=== PATIENT | male | born 1940 | race Caucasian/White ===

== ENCOUNTER 2016-07-07 12:16 | Emergency (ER) | payer MEDICARE, OTHER ==
[2016-07-07 12:41] VITALS: BP 139/71
--- NOTE | 2016-07-07 12:49 | ED ---
Respiratory - HPI Summary HPI Summary: he has had a cough for three weeks. it is mainly dry. no fever or pain. he has tried z pack three weeks ago. no hemoptysis. no known lung disease. no significant sob at rest. - History of Current Complaint Chief Complaint: UCGeneralIllness Stated Complaint: COUGH CONGESTION Time Seen by Provider: 07/07/16 12:35 Hx Obtained From: Patient, Family/Corn Detasseler Onset/Duration: Gradual Onset Timing: Constant Initial Severity: Mild Current Severity: Moderate Character: Cough (Productive), Cough (Nonproductive) Sputum Amount: Scant Sputum Color: White Aggravating Factor(s): Deep Breaths Alleviating Factor(s): Nothing Associated Signs and Symptoms: Negative - Risk Factors Status Asthmaticus Risk Factors: Negative - Allergy/Home Medications Allergies/Adverse Reactions: Allergies Allergy/AdvReac Type Severity Reaction Status Date / Time No Known Allergies Allergy Verified 10/28/15 18:00 PMH/Surg Hx/FS Hx/Imm Hx Endocrine/Hematology History: Reports: Hx Diabetes Denies: Hx Thyroid Disease Cardiovascular History: Denies: Hx Congestive Heart Failure, Hx Deep Vein Thrombosis, Hx Hypertension , Hx Myocardial Infarction, Hx Pacemaker/ICD Respiratory History: Reports: Hx Asthma Denies: Hx Chronic Obstructive Pulmonary Disease (COPD), Hx Lung Cancer GI History: Denies: Hx Gall Bladder Disease, Hx Gastrointestinal Bleed, Hx Ulcer, Hx Urosepsis History: Denies: Hx Kidney Stones, Hx Renal Disease Neurological History: Denies: Hx Dementia, Hx Migraine, Hx Seizures, Hx Transient Ischemic Attacks (TIA) Psychiatric History: Denies: Hx Anxiety, Hx Depression, Hx Schizophrenia, Hx Bipolar Disorder - Surgical History Surgery Procedure, Year, and Place: R knee x 2, cholecystectomy, hernia- right groin Infectious Disease History: Yes Infectious Disease History: Reports: Hx Hepatitis - Hepatitis B Denies: Traveled Outside the [place] in Last 30 Days - Family History Known Family History: Positive: None, Cardiac Disease - Social History Alcohol Use: None Substance Use Type: Reports: None Smoking Status (MU): Former Smoker Have You Smoked in the Last Year: No Review of Systems Negative: Fever, Chills, Fatigue Eyes: Negative Negative: Photophobia ENT: Negative Negative: Epistaxis Cardiovascular: Negative Positive: Cough Gastrointestinal: Negative All Other Systems Reviewed And Are Negative: Yes Physical Exam Triage Information Reviewed: Yes Vital Signs On Initial Exam: Initial Vitals Temp Pulse Resp BP Pulse Ox 97.5 F 75 16 139/71 97 07/07/16 12:31 07/07/16 12:31 07/07/16 12:31 07/07/16 12:31 07/07/16 12:31 Vital Signs Reviewed: Yes Appearance: Positive: Well-Appearing, No Pain Distress, Well-Nourished. Negative: Ill-Appearing, Pain Distress, Obese Skin: Positive: Warm, Skin Color Reflects Adequate Perfusion Head/Face: Positive: Normal Head/Face Inspection Eyes: Positive: Normal ENT: Positive: Normal ENT inspection, Hearing grossly normal, Pharynx normal, Nasal congestion, Nasal drainage. Negative: Pharyngeal erythema, TMs normal, TM bulging, TM dull, TM red, Tonsillar swelling, Tonsillar exudate, Trismus, Muffled/hoarse voice, Dental tenderness Neck: Positive: Supple, Nontender, No Lymphadenopathy. Negative: Nuchal Rigidity, Tenderness @, Enlarged Nodes @ Respiratory/Lung Sounds: Positive: Clear to Auscultation, Breath Sounds Present , Decreased Breath Sounds. Negative: Rales, Rhonchi, Subcutaneous Emphysema, Stridor, Tracheal Deviation, Wheezes, Unable to speak in full sentences Cardiovascular: Positive: Normal, RRR, Pulses are Symmetrical in both Upper and Lower Extremities Abdomen Description: Positive: Nontender, No Organomegaly Musculoskeletal: Positive: Normal. Negative: Edema Left, Edema Right Neurological: Positive: Normal, Sensory/Motor Intact, Alert, Oriented to Person Place, Time, CN Intact II-III Psychiatric: Positive: Normal Diagnostics - Vital Signs Vital Signs Temp Pulse Resp BP Pulse Ox 07/07/16 12:31 97.5 F 75 16 139/71 97 - Laboratory Lab Statement: Any lab studies that have been ordered have been reviewed, and results considered in the medical decision making process. Disposition - Course Course Of Treatment: Pt appears well. no fever or abnormal vitals. he is breathing and talking comfortably. x ray to be reviewed. He will return to ed for any worsening. we will try prednisone and antiobiotics. He and agree to f/u on Sunday with pcp. PE is less likely due to no sob and no calf swelling or tachycardia. - Differential Dx - Cardiopulmonary Differential Diagnoses - Cardiopulmonary: Acute Coronary, Acute Dyspnea, Airway Obstruction, Cardiomyopathy, Chest Wall Pain, Hyperkalemia, Hyperventilation, Hypokalemia, Influenza, Laryngitis, Lower Resp Infection, Myocarditis, Paroxysmal SVT, Paroxysmal VT, Pericarditis, Pleurisy, Pneumothorax, Pulmonary Edema, Pulmonary Embolism - Diagnoses Provider Diagnoses: Acute bronchitis Discharge - Discharge Plan Condition: Good Disposition: HOME Prescriptions: DOXYcycline CAP(*) [DOXYcycline 100MG CAP(*)] 100 mg PO BID #20 cap predniSONE TAB* [Deltasone TAB*] 40 mg PO DAILY #5 tab Patient Education Materials: Acute Bronchitis (ED) Referrals: Isabella Wagner MD [Primary Care Provider] - 3 Days
--- NOTE | 2016-07-07 13:00 | RAD ---
Indication: Cough. 2 views of the chest including dual energy PA views demonstrates no mediastinal shift. Heart is of normal size and configuration. Lung fernandes demonstrate no pleural fluid, pneumonia or pneumothorax. Comparison is made with previous exam dated September 19, 2014. IMPRESSION: No active cardiopulmonary disease is noted.
== END 2016-07-07 13:43 | disposition home or self-care (01) ==
LOC: UCCORT 12:16
DX: J20.9 Acute bronchitis, unspecified (principal); Z87.891 Personal history of nicotine dependence
CPT/HCPCS: 71020; 99212; G0463

== ENCOUNTER 2017-10-12 09:59 | Emergency (ER) | payer OTHER ==
[2017-10-12 10:42] VITALS: BP 132/67
--- NOTE | 2017-10-12 12:08 | UC ---
Respiratory Complaint HPI - HPI Summary HPI Summary: several days of worsening sinus and chest congestion---patient states this is his usual yearly bronchitis pattern---he has not started using his inhalers yet- - History of Current Complaint Chief Complaint: UCRespiratory Stated Complaint: COUGH/SNEEZING Time Seen by Provider: 10/12/17 12:01 Hx Obtained From: Patient Onset/Duration: Gradual Onset, Lasting Days, Still Present Timing: Constant Pain Intensity: 0 Character: Cough: Productive Aggravating Factors: Deep Breaths, Recumbent Position Alleviating Factors: Nothing Associated Signs And Symptoms: Positive: URI, Nasal Congestion, Sinus Discomfort - Allergies/Home Medications Allergies/Adverse Reactions: Allergies Allergy/AdvReac Type Severity Reaction Status Date / Time No Known Allergies Allergy Verified 10/12/17 10:32 Home Medications: Home Medications Acetaminophen [Acetaminophen Extra Strength] 1,000 mg PO Q12H PRN 10/12/17 [ History Confirmed 10/12/17] Albuterol HFA INHALER* [Ventolin HFA Inhaler*] 1 - 2 puff INH Q4H PRN 10/12/17 [ History Confirmed 10/12/17] Finasteride [Proscar] 5 mg PO DAILY 10/12/17 [History Confirmed 10/12/17] Fluticasone DISKUS 100 MCG(NF) [Flovent Diskus 100 MCG(NF)] 1 puff INH BID PRN 10/12/17 [History Confirmed 10/12/17] Insulin ASPART (NF) [Novolog (NF)] 14 unit SUBCUT AC 10/12/17 [History Confirmed 10/12/17] Insulin Detemir (NF) [Levemir (NF)] 24 unit SUBCUT BEDTIME 10/12/17 [History Confirmed 10/12/17] Losartan TAB* [Cozaar TAB*] 10 mg PO DAILY 10/12/17 [History Confirmed 10/12/17] Omeprazole CAP* [Prilosec CAP* 20 MG] 20 mg PO DAILY 10/12/17 [History Confirmed 10/12/17] Pravastatin (NF) [Pravachol (NF)] 40 mg PO DAILY 10/12/17 [History Confirmed 12/22] Prescribed Allergy Medication 1 tab PO DAILY 10/12/17 [History] Tamsulosin CAP* [Flomax CAP*] 0.4 mg PO DAILY 10/12/17 [History Confirmed ] PMH/Surg Hx/FS Hx/Imm Hx Previously Healthy: No Endocrine History: Diabetes, Dyslipidemia GI/ History: Gastroesophageal Reflux Other History Of: Negative For: HIV, Hepatitis B, Hepatitis C - Surgical History Surgical History: Yes Surgery Procedure, Year, and Place: R knee x 2, cholecystectomy, hernia- right groin - Family History Known Family History: Positive: None, Cardiac Disease - Social History Occupation: Retired Lives: With Family Alcohol Use: None Substance Use Type: None Smoking Status (MU): Former Smoker Length of Time of Smoking/Using Tobacco: 1 PPD and then a pipe 4-5 daily x 19 Years Have You Smoked in the Last Year: No When Did the Patient Quit Smoking/Using Tobacco: ~1972 Review of Systems Constitutional: Negative Skin: Negative Eyes: Negative ENT: Ear Ache, Nasal Discharge, Sinus Congestion, Sinus Pain/Tenderness Respiratory: Cough Cardiovascular: Negative Gastrointestinal: Negative Genitourinary: Negative Motor: Negative Neurovascular: Negative Musculoskeletal: Negative Neurological: Negative Psychological: Negative Is Patient Immunocompromised?: No All Other Systems Reviewed And Are Negative: Yes Physical Exam Triage Information Reviewed: Yes Appearance: Well-Appearing, No Pain Distress, Well-Nourished Vital Signs: Initial Vital Signs Temp 98.2 F 10/12/17 10:30 Pulse 60 10/12/17 10:30 Resp 18 10/12/17 10:30 BP 132/67 10/12/17 10:30 Pulse Ox 98 10/12/17 10:30 Vital Signs Reviewed: Yes Eye Exam: Normal Eyes: Positive: Conjunctiva Clear ENT Exam: Normal ENT: Positive: Normal ENT inspection, Hearing grossly normal, Pharynx normal, Nasal congestion, TMs normal, Sinus tenderness, Uvula midline. Negative: Nasal drainage, Trismus, Muffled voice, Hoarse voice, Dental tenderness Dental Exam: Normal Neck exam: Normal Neck: Positive: Supple, Nontender Respiratory Exam: Normal Respiratory: Positive: Chest non-tender, Lungs clear, Normal breath sounds, No respiratory distress, No accessory muscle use Cardiovascular Exam: Normal Cardiovascular: Positive: RRR, No Murmur, Pulses Normal, Brisk Capillary Refill Musculoskeletal Exam: Normal Musculoskeletal: Positive: Strength Intact, ROM Intact, No Edema Neurological Exam: Normal Neurological: Positive: Alert, Muscle Tone Normal Psychological Exam: Normal Skin Exam: Normal UC Diagnostic Evaluation - Laboratory O2 Sat by Pulse Oximetry: 98 Respiratory Course/Dx - Course Course Of Treatment: begin inhalers, flonase nasal spray, zithromax, follow with pcp prn - Differential Dx/Diagnosis Provider Diagnoses: Bronchitis Discharge - Sign-Out/Discharge Documenting (check all that apply): Discharge/Admit/Transfer - Discharge Plan Condition: Stable Disposition: HOME Prescriptions: Azithromycin TAB* [Zithromax TAB (Z-JEANA) 250 mg #6 tabs] 2 tab PO .TODAY, THEN 1 DAILY #1 jeana Fluticasone NASAL SPRAY 50MCG* [Flonase NASAL SPRAY 50MCG*] 2 spray BOTH NARES DAILY #1 btl Patient Education Materials: How to Use a Metered-Dose Inhaler (ED), Acute Bronchitis (ED), How to Use Nasal Pansey (ED) Referrals: Isabella Wagner MD [Primary Care Provider] - If Needed - Billing Disposition and Condition Condition: STABLE Disposition: Home
== END 2017-10-12 12:15 | disposition home or self-care (01) ==
LOC: UCCORT 09:59
DX: J40 Bronchitis, not specified as acute or chronic (principal); E11.9 Type 2 diabetes mellitus without complications; K21.9 Gastro-esophageal reflux disease without esophagitis; E78.5 Hyperlipidemia, unspecified; Z79.899 Other long term (current) drug therapy; Z87.891 Personal history of nicotine dependence; Z79.82 Long term (current) use of aspirin
CPT/HCPCS: 99212; G0463

== ENCOUNTER 2019-03-18 09:44 | Emergency (ER) | payer OTHER ==
[2019-03-18 09:57] VITALS: BP 142/69
--- NOTE | 2019-03-18 10:14 | UC ---
Throat Pain/Nasal Jonathan HPI - HPI Summary HPI Summary: sinus pain and pressure x 2 weeks nasal congestion, yellow / green nasal discharge, post nasal drip , fever, chills, bilateral ear pressure no cough - History of Current Complaint Chief Complaint: UCGeneralIllness Stated Complaint: SINUS COMPLAINT Time Seen by Provider: 03/18/19 10:02 Hx Obtained From: Patient Onset/Duration: Gradual Onset, Lasting Weeks - 2, Still Present Severity: Moderate Pain Intensity: 7 Cough: None Associated Signs & Symptoms: Positive: Sinus Discomfort, Nasal Discharge, Fever. Negative: Wheezing, Hoarseness, Rash - Allergies/Home Medications Allergies/Adverse Reactions: Allergies Allergy/AdvReac Type Severity Reaction Status Date / Time azithromycin AdvReac See Comment Verified 03/18/19 09:57 Home Medications: Home Medications Calcium Polycarbophil [Fiber Lax] 625 mg PO DAILY 03/18/19 [History Confirmed ] Meclizine TAB* [Antivert 12.5 TAB*] 12.5 mg PO TID PRN 03/18/19 [History Confirmed 03/18/19] Montelukast Sodium TAB* [Singulair TAB*] 10 mg PO DAILY 03/18/19 [History Confirmed 03/18/19] PMH/Surg Hx/FS Hx/Imm Hx Endocrine History: Diabetes Respiratory History: Asthma Other History Of: Hepatitis B Negative For: HIV, Hepatitis C - Surgical History Surgical History: Yes Surgery Procedure, Year, and Place: R knee x 2, cholecystectomy, hernia- right groin - Family History Known Family History: Positive: None, Cardiac Disease - Social History Alcohol Use: None Substance Use Type: None Smoking Status (MU): Former Smoker Length of Time of Smoking/Using Tobacco: 1 PPD and then a pipe 4-5 daily x 19 Years Have You Smoked in the Last Year: No When Did the Patient Quit Smoking/Using Tobacco: ~1972 Review of Systems All Other Systems Reviewed And Are Negative: Yes Constitutional: Positive: Fever, Chills, Fatigue Skin: Positive: Negative Eyes: Positive: Negative ENT: Positive: Sore Throat, Ear Ache, Nasal Discharge, Sinus Congestion, Sinus Pain/Tenderness Respiratory: Positive: Negative Is Patient Immunocompromised?: No Physical Exam Triage Information Reviewed: Yes Appearance: Well-Appearing, No Pain Distress, Well-Nourished Vital Signs: Initial Vital Signs Temp 98.7 F 03/18/19 09:52 Pulse 71 03/18/19 09:52 Resp 17 03/18/19 09:52 BP 142/69 03/18/19 09:52 Pulse Ox 100 03/18/19 09:52 Vital Signs Reviewed: Yes Eye Exam: Normal Eyes: Positive: Conjunctiva Clear ENT: Positive: Normal ENT inspection, Hearing grossly normal, Pharynx normal, Nasal congestion, Nasal drainage, TMs normal, Sinus tenderness. Negative: TM bulging, TM dull, TM red, Tonsillar swelling, Tonsillar exudate Neck: Positive: Supple, Nontender, No Lymphadenopathy Respiratory: Positive: Chest non-tender, Lungs clear, Normal breath sounds Cardiovascular: Positive: RRR, No Murmur, Pulses Normal Skin Exam: Normal Throat Pain/Nasal Course/Dx - Differential Dx/Diagnosis Provider Diagnosis: Sinusitis Discharge ED - Sign-Out/Discharge Documenting (check all that apply): Patient Departure All imaging exams completed and their final reports reviewed: No Studies - Discharge Plan Condition: Stable Disposition: HOME Prescriptions: Amoxicillin/Clavulanate TAB* [Augmentin TAB 875*] 875 mg PO BID #20 tab Patient Education Materials: Sinusitis (ED) Referrals: Isabella Wagner MD [Primary Care Provider] - If Needed - Billing Disposition and Condition Condition: STABLE Disposition: Home
== END 2019-03-18 10:16 | disposition home or self-care (01) ==
LOC: UCCORT 09:44
DX: J32.9 Chronic sinusitis, unspecified (principal); J02.9 Acute pharyngitis, unspecified; E11.9 Type 2 diabetes mellitus without complications; J45.909 Unspecified asthma, uncomplicated; H92.03 Otalgia, bilateral; Z88.1 Allergy status to other antibiotic agents; Z87.891 Personal history of nicotine dependence; Z79.899 Other long term (current) drug therapy
CPT/HCPCS: 99212; G0463